=== PATIENT | female | born 1955 | race Caucasian/White ===

== ENCOUNTER 2017-07-19 16:10 | Emergency (ER) | payer SELFPAY ==
[2017-07-19] MEDS ORDERED: IOHEXOL 350 MG/ML 10 ML VIAL (for RAD DIAG) IVCONTRAST ONE (16:11)
[2017-07-19 16:12] VITALS: O2SAT 100
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
[2017-07-19 16:34] LABS: AUTOMATED NEUTROPHIL # 2.7 TH/MM3 (1.8-7.7); BASOPHIL # 0.1 TH/MM3 (0-0.2); BASOPHIL % 1.2 % (0.0-2.0); EOSINOPHIL # 0.3 TH/MM3 (0-0.4); EOSINOPHIL % 4.8 % (0.0-4.0); HEMATOCRIT 39.3 % (35.0-46.0); HEMO FLAGS DIFF FINAL; LYMPH % 46.5 % (9.0-44.0); LYMPHOCYTE # 3.1 TH/MM3 (1.0-4.8); MEAN CELL VOLUME 96.4 FL (80.0-100.0); MEAN CORPUSCULAR HEMOGLOBIN 32.5 PG (27.0-34.0); MEAN CORPUSCULAR HGB CONC 33.7 % (32.0-36.0); MONO % 7.5 % (0.0-8.0); PLATELET COUNT 201 TH/MM3 (150-450); RED BLOOD COUNT 4.07 MIL/MM3 (4.00-5.30); RED CELL DISTRIBUTION WIDTH 14.3 % (11.6-17.2); WHITE BLOOD COUNT 6.8 TH/MM3 (4.0-11.0)
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
[2017-07-19 16:42] LABS: APTT (PATIENT) 23.6 SEC (24.3-30.1); I-STAT POTASSIUM 3.3 MMOL/L (3.5-4.9); PROTHROMBIN TIME - PATIENT 11.3 SEC (9.8-11.6)
[2017-07-19] MEDS ORDERED: PRIL20TA2 PO (16:43)
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
[2017-07-19 17:04] VITALS: BP 150/85; PULSE 108; RESP 20; O2SAT 98
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
[2017-07-19] MEDS ORDERED: IBUP-1129 PO (18:32)
[2017-07-19] MEDS ORDERED: CYCL1TAB29 PO (18:32)
[2017-07-19 22:07] VITALS: BP 147/100; PULSE 92; RESP 16; O2SAT 98
--- NOTE | 2017-07-20 11:33 | EKG ---
Date Performed: 07/19/2017 Time Performed: 16:42:49 PTAGE: 89 years EKG: SINUS TACHYCARDIA POSSIBLE RIGHT VENTRICULAR CONDUCTION DELAY MINIMAL ST DEPRESSION ABNORMA L RHYTHM ECG NO PREVIOUS TRACING DOCTOR: Joni Estrada Interpretating Date/Time 07/20/2017 11:30:16
== END 2017-07-19 22:23 | disposition home or self-care (01) ==
LOC: EDBD 16:10 → NEPI 16:10 → NEPE 22:23
DX: S01.01XA Laceration without foreign body of scalp, initial encounter (principal); R00.0 Tachycardia, unspecified; R41.82 Altered mental status, unspecified; K21.9 Gastro-esophageal reflux disease without esophagitis; V49.88XA Car occupant (driver) (passenger) injured in other specified transport accidents, initial encounter; Y92.410 Unspecified street and highway as the place of occurrence of the external cause; Y99.8 Other external cause status
CPT/HCPCS: 12001; 70450; 71010; 71260; 72125; 72170; 74177; 80307; 82435; 82565; 82947; 84132; 84295; 84520; 85025; 85610; 85730; 86850; 86900; 86901; 93005; 99285; 99291; L0150; Q9967; G0390